=== PATIENT | female | born 1995 | race Caucasian/White ===

== ENCOUNTER 2022-01-16 13:16 | Emergency (ER) | payer BC ==
[~2022-01-16] VITALS: Ht 167.6 cm; Wt 79.0 kg
[2022-01-16 13:17] VITALS: BP 125/75
[2022-01-16] MEDS ORDERED: CELE20TA PO (13:27)
[2022-01-16 14:47] LABS: BASO # 0.1 10^3/uL (0.0-0.2); BASO % 0.4 % (0.0-1.0); EOS # 0.1 10^3/uL (0.0-0.5); EOS % 0.8 % (0.0-3.0); HEMATOCRIT 41.3 % (36.0-47.0); HEMOGLOBIN 13.8 g/dl (12.0-15.5); LYMPH # 2.3 10^3/uL (1.5-5.0); MEAN CORPUSCULAR HGB CONC 33.4 g/dl (32.0-36.5); MEAN CORPUSCULAR VOLUME 89.8 fl (80.0-96.0); MONO % 8.9 % (2.0-8.0); NEUTROPHILS # 7.9 10^3/uL (1.5-8.5); NEUTROPHILS % 69.5 % (36.0-66.0); PLATELET COUNT, AUTOMATED 389 10^3/uL (150-450); WHITE BLOOD COUNT 11.4 10^3/uL (4.0-10.0)
== END 2022-01-16 17:20 | disposition home or self-care (01) ==
LOC: M ED 13:16
DX: O26.91 Pregnancy related conditions, unspecified, first trimester (principal); R10.9 Unspecified abdominal pain; O99.891 Other specified diseases and conditions complicating pregnancy; N93.9 Abnormal uterine and vaginal bleeding, unspecified; Z3A.01 Less than 8 weeks gestation of pregnancy; O99.280 Endocrine, nutritional and metabolic diseases complicating pregnancy, unspecified trimester; E28.2 Polycystic ovarian syndrome; Z98.890 Other specified postprocedural states

== ENCOUNTER → 2022-01-22 | Outpatient (CLI) | payer BC ==
[~2022-01-22] MED LIST: CELE20TA PO
== END ==
LOC: M WHC 09:40
PROVIDERS: ATTEND Physician Assistant
DX: O26.851 Spotting complicating pregnancy, first trimester (principal); Z3A.01 Less than 8 weeks gestation of pregnancy

== ENCOUNTER → 2022-02-05 | Outpatient (CLI) | payer BC ==
[2022-02-05 18:44] LABS: BASO % 0.4 % (0.0-1.0); EOS # 0.1 10^3/uL (0.0-0.5); EOS % 1.4 % (0.0-3.0); HEMATOCRIT 39.3 % (36.0-47.0); HEMOGLOBIN 12.7 g/dl (12.0-15.5); LYMPH # 2.3 10^3/uL (1.5-5.0); LYMPH % 23.6 % (24.0-44.0); MEAN CORPUSCULAR HEMOGLOBIN 29.9 pg (27.0-33.0); MEAN CORPUSCULAR HGB CONC 32.3 g/dl (32.0-36.5); MEAN CORPUSCULAR VOLUME 92.5 fl (80.0-96.0); MONO # 1.1 10^3/uL (0.0-0.8); MONO % 10.9 % (2.0-8.0); NEUTROPHILS # 6.2 10^3/uL (1.5-8.5); NEUTROPHILS % 62.4 % (36.0-66.0); PLATELET COUNT, AUTOMATED 372 10^3/uL (150-450); RED BLOOD COUNT 4.25 10^6/uL (4.00-5.40); WHITE BLOOD COUNT 9.9 10^3/uL (4.0-10.0)
[2022-02-05 20:03] LABS: HEPATITIS C VIRUS ABY INDEX 0.2 INDEX (<0.8); HIV 1&2 SCREEN CENTAUR NEGATIVE (NEGATIVE)
[2022-02-05 20:19] LABS: GC DNA AMPLIFICATION NEGATIVE (NEGATIVE)
== END ==
LOC: M PLALAB 14:05
PROVIDERS: ATTEND Obstetrics & Gynecology
DX: Z34.91 Encounter for supervision of normal pregnancy, unspecified, first trimester (principal); Z36.89 Encounter for other specified antenatal screening

== ENCOUNTER → 2022-02-22 | Outpatient (CLI) | payer BC | LOC: M LAB 11:21 | PROVIDERS: ATTEND Obstetrics & Gynecology | DX: Z34.01 Encounter for supervision of normal first pregnancy, first trimester (principal); Z3A.00 Weeks of gestation of pregnancy not specified ==

== ENCOUNTER → 2022-05-05 | Outpatient (CLI) | payer BC | LOC: M WHC 10:04 | PROVIDERS: ATTEND Specialist | DX: Z34.02 Encounter for supervision of normal first pregnancy, second trimester (principal); Z3A.20 20 weeks gestation of pregnancy ==

== ENCOUNTER → 2022-06-06 | Outpatient (CLI) | payer BC | LOC: M WHC 09:58 | PROVIDERS: ATTEND Obstetrics & Gynecology | DX: Z34.02 Encounter for supervision of normal first pregnancy, second trimester (principal); Z3A.24 24 weeks gestation of pregnancy ==

== ENCOUNTER → 2022-06-18 | Outpatient (CLI) | payer BC ==
[2022-06-18 14:03] LABS: HEMATOCRIT 31.3 % (36.0-47.0); MEAN CORPUSCULAR HEMOGLOBIN 30.7 pg (27.0-33.0); MEAN CORPUSCULAR HGB CONC 31.9 g/dl (32.0-36.5); PLATELET COUNT, AUTOMATED 356 10^3/uL (150-450); RED BLOOD COUNT 3.26 10^6/uL (4.00-5.40); WHITE BLOOD COUNT 10.9 10^3/uL (4.0-10.0)
[2022-06-18 16:11] LABS: GC DNA AMPLIFICATION NEGATIVE (NEGATIVE)
== END ==
LOC: M PLALAB 10:20
PROVIDERS: ATTEND Obstetrics & Gynecology
DX: Z34.02 Encounter for supervision of normal first pregnancy, second trimester (principal)

== ENCOUNTER → 2022-07-10 | Outpatient (CLI) | payer BC | LOC: M WHC 11:02 | PROVIDERS: ATTEND Obstetrics & Gynecology | DX: Z36.2 Encounter for other antenatal screening follow-up (principal); Z3A.29 29 weeks gestation of pregnancy ==

== ENCOUNTER → 2022-08-07 | Outpatient (CLI) | payer BC ==
[2022-08-07 19:12] LABS: HEMATOCRIT 30.5 % (36.0-47.0); HEMOGLOBIN 9.7 g/dl (12.0-15.5); MEAN CORPUSCULAR HGB CONC 31.8 g/dl (32.0-36.5); MEAN CORPUSCULAR VOLUME 94.4 fl (80.0-96.0); PLATELET COUNT, AUTOMATED 373 10^3/uL (150-450); RED BLOOD COUNT 3.23 10^6/uL (4.00-5.40); WHITE BLOOD COUNT 14.8 10^3/uL (4.0-10.0)
[2022-08-07 19:43] LABS: ALBUMIN 2.6 G/DL (3.2-5.2); ALKALINE PHOSPHATASE 94 U/L (46-116); ALT/SGPT 11 U/L (7.0-40); AST/SGOT 16 U/L (<34); BILIRUBIN,DIRECT < 0.1 MG/DL (<0.4); BILIRUBIN,TOTAL 0.3 MG/DL (0.3-1.2); TOTAL PROTEIN 5.5 G/DL (5.7-8.2)
== END ==
LOC: M WUC 15:34
PROVIDERS: ATTEND Advanced Practice Midwife
DX: L29.9 Pruritus, unspecified (principal)

== ENCOUNTER → 2022-08-28 | Outpatient (REF) | payer BC | LOC: M PLALAB 10:34 | PROVIDERS: ATTEND Advanced Practice Midwife | DX: Z34.03 Encounter for supervision of normal first pregnancy, third trimester (principal) ==

== ENCOUNTER → 2022-09-03 | Outpatient (CLI) | payer BC | LOC: M WHC 14:44 | PROVIDERS: ATTEND Advanced Practice Midwife | DX: O40.3XX0 Polyhydramnios, third trimester, not applicable or unspecified (principal); Z3A.37 37 weeks gestation of pregnancy ==

== ENCOUNTER → 2022-09-04 | Outpatient (CLI) | payer BC | LOC: M WHC 11:44 | PROVIDERS: ATTEND Obstetrics & Gynecology | DX: O28.8 Other abnormal findings on antenatal screening of mother (principal); Z3A.37 37 weeks gestation of pregnancy ==

== ENCOUNTER 2022-09-14 10:17 | Inpatient (IN) | payer BC ==
[~2022-09-14] VITALS: Ht 167.6 cm; Wt 98.8 kg
[2022-09-14] VITALS (9 sets, daily range): BP systolic 120–145; BP diastolic 56–80
[2022-09-14] MEDS ORDERED: OXYTOCIN DRIP 30 UNITS in IV 1 EA IV PRN (11:20)
[2022-09-14] MEDS ORDERED: LIDOCAINE 1% MDV 20ML VIAL INFIL PRN (11:20)
[2022-09-14] MEDS ORDERED: IRON1TAB2 PO (11:21)
[2022-09-14] MEDS ORDERED: PRENTAB9 PO (11:21)
[2022-09-14] MEDS ORDERED: HOME MED LIST COMPLETE! XX SCH (11:30)
[2022-09-14 11:33] LABS: HEMATOCRIT 31.6 % (36.0-47.0); HEMOGLOBIN 10.2 g/dl (12.0-15.5); MEAN CORPUSCULAR HGB CONC 32.3 g/dl (32.0-36.5); MEAN CORPUSCULAR VOLUME 92.9 fl (80.0-96.0); PLATELET COUNT, AUTOMATED 357 10^3/uL (150-450); WHITE BLOOD COUNT 13.8 10^3/uL (4.0-10.0)
[2022-09-14] MEDS: miSOPROStol 50MCG 1/2 TABLET SL SCH ×3 (11:42→20:55)
[2022-09-14] MEDS: CitaloPRAM (CeleXA) 20 MG TAB PO SCH (20:55)
[2022-09-15] VITALS (39 sets, daily range): BP systolic 108–157; BP diastolic 53–89
[2022-09-15] MEDS: miSOPROStol 50MCG 1/2 TABLET SL SCH ×2 (01:03→03:30)
[2022-09-15] MEDS ORDERED: TRANEXAMIC ACID INJection 1,000 MG in NS 100 ML IV PRN (09:55)
[2022-09-15] MEDS ORDERED: CARBOPROST TROMETHAMINE 250 MCG/ML AMP IM PRN (09:55)
[2022-09-15] MEDS ORDERED: METHYLERGONOVINE MALEATE 0.2MG/ML 1ML VIAL IM PRN (09:55)
[2022-09-15] MEDS ORDERED: OXYTOCIN INJ 10UNITS/ML 1ML VIAL IM PRN (09:55)
[2022-09-15] MEDS ORDERED: OXYTOCIN DRIP 30 UNITS in IV 1 EA IV SCH (09:55)
[2022-09-15] MEDS: LR 1,000 ML IV SCH ×2 (10:56→19:32)
[2022-09-15] MEDS ORDERED: ePHEDrine SULFATE 25 MG/5 ML(5MG/ML) SYRINGE IVP PRN (18:55)
[2022-09-15] MEDS ORDERED: NALOXONE INJ 0.4MG/1ML VIAL IV PRN (18:55)
[2022-09-15] MEDS ORDERED: EPIDURAL/PCA KEYS XX PRN (18:55)
[2022-09-15] MEDS ORDERED: diphenhydrAMINE 50MG/ML VIAL IV PRN (18:55)
[2022-09-15] MEDS ORDERED: LR 500 ML IV PRN (18:55)
[2022-09-15] MEDS ORDERED: ONDANSETRON 4MG 2ML VIAL IV PRN (18:55)
[2022-09-15] MEDS: FENTANYL/ROPIVACAINE/NACL BAG 100 ML EPIDURAL SCH (19:32)
[2022-09-15] MEDS: CitaloPRAM (CeleXA) 20 MG TAB PO SCH (20:47)
[2022-09-16] VITALS (29 sets, daily range): BP systolic 107–158; BP diastolic 56–84
[2022-09-16] MEDS: LR 1,000 ML IV SCH ×2 (01:43→09:45)
[2022-09-16] MEDS: FENTANYL/ROPIVACAINE/NACL BAG 100 ML EPIDURAL SCH (02:24)
[2022-09-16] MEDS: PRENATAL VITAMINS CHEWABLE TABLET PO SCH (09:00)
[2022-09-16] MEDS ORDERED: ceFAZolin SOD 2 GM in IV 1 EA IV ONE (10:00)
[2022-09-16] MEDS ORDERED: AZITHROMYCIN INJ 500 MG, VIAL MATE ADAPTER 1 EACH in NS 250 ML IV ONE (10:00)
[2022-09-16] MEDS ORDERED: BICITRA 30ML SOLN UDC PO ONE (10:00)
[2022-09-16] MEDS ORDERED: MORPHINE PRES-FREE INJ 10 MG/10 ML VIAL As Ordered ONE (10:25)
[2022-09-16] MEDS ORDERED: KETOROLAC 60MG 2ML VIAL As Ordered ONE (10:25)
[2022-09-16] MEDS ORDERED: OXYTOCIN INJ 10UNITS/ML 1ML VIAL As Ordered ONE ×3 (10:25→11:32)
[2022-09-16] MEDS ORDERED: LIDOCAINE PRES-FREE 2% 10ML AMP As Ordered ONE ×2 (10:25→11:31)
[2022-09-16] MEDS ORDERED: ONDANSETRON 4MG 2ML VIAL As Ordered ONE (10:25)
[2022-09-16] MEDS ORDERED: KETAMINE HCL 200MG/20ML VIAL As Ordered ONE (11:00)
[2022-09-16] MEDS ORDERED: fentaNYL 100 MCG/2 ML INJECTION As Ordered ONE ×2 (11:00→12:23)
[2022-09-16] MEDS ORDERED: MIDAZOLAM INJ 2MG/2ML VIAL As Ordered ONE (11:00)
[2022-09-16 11:28] LABS: CORD GAS ABE A -5.9; CORD GAS HCO3 A 19.7 MEQ/L; CORD GAS O2 SAT A 81.9 %; CORD GAS PCO2 A 39.1 mmHg; CORD GAS PH A 7.32 UNITS; CORD GAS PO2 A 38.5 mmHg; CORD GAS SBC A 19.4 MEQ/L; CORD GAS TCO2 A 20.9 MEQ/L
[2022-09-16 11:30] LABS: CORD GAS ABE V -5.8; CORD GAS HCO3 V 19.8 MEQ/L; CORD GAS O2 SAT V 82.3 %; CORD GAS PCO2 V 39.5 mmHg; CORD GAS PH V 7.318 UNITS; CORD GAS PO2 V 41.2 mmHg; CORD GAS SBC V 19.4 MEQ/L
[2022-09-16] MEDS ORDERED: **NOTE PATIENT COMMENT** MISC XX SCH (12:00)
[2022-09-16] MEDS ORDERED: ONDANSETRON 4MG 2ML VIAL IV PRN ×2 (12:00→12:05)
[2022-09-16] MEDS ORDERED: PROMETHAZINE 25MG/ML 1ML VIAL IV PRN (12:00)
[2022-09-16] MEDS ORDERED: NALOXONE INJ 0.4MG/1ML VIAL IV PRN ×2 (12:00)
[2022-09-16] MEDS ORDERED: diphenhydrAMINE 50MG/ML VIAL IV PRN (12:00)
[2022-09-16] MEDS ORDERED: fentaNYL 100 MCG/2 ML INJECTION IV PRN (12:00)
[2022-09-16] MEDS ORDERED: LR 1,000 ML IV SCH ×2 (12:00→12:05)
[2022-09-16] MEDS ORDERED: oxyCODONE 5MG TAB PO PRN (12:00)
[2022-09-16] MEDS: SLF 3 ML SYR IV SCH ×2 (12:00→20:00)
[2022-09-16] MEDS ORDERED: METOCLOPRAMIDE INJ 10MG/2ML VIAL IV PRN (12:00)
[2022-09-16] MEDS ORDERED: PERCOCET 5MG/325MG TAB PO PRN (12:05)
[2022-09-16] MEDS ORDERED: RHOGAM 300MCG (1500IU) INJ IM SCH (12:05)
[2022-09-16] MEDS ORDERED: OXYTOCIN DRIP 30 UNITS in IV 1 EA IV SCH (12:05)
[2022-09-16] MEDS ORDERED: SIMETHICONE 80MG CHEW TAB PO PRN (12:05)
[2022-09-16] MEDS ORDERED: MOM 30ML SUSPENSION UDC PO PRN (12:05)
[2022-09-16] MEDS ORDERED: oxyCODONE 5MG TAB As Ordered ONE (12:58)
[2022-09-16] MEDS ORDERED: METHYLERGONOVINE MALEATE 0.2MG/ML 1ML VIAL ONE (15:12)
[2022-09-16] MEDS: KETOROLAC 30 MG/ML 1ML VIAL IV SCH ×2 (16:33→22:39)
[2022-09-16] MEDS: DOCUSATE SODIUM 100MG CAPSULE PO SCH (20:07)
[2022-09-16] MEDS: CitaloPRAM (CeleXA) 20 MG TAB PO SCH (20:07)
[2022-09-16] MEDS: PERCOCET 5MG/325MG TAB PO PRN (23:12)
[2022-09-17 02:00] VITALS: BP 111/60
[2022-09-17] MEDS: SLF 3 ML SYR IV SCH (04:30)
[2022-09-17] MEDS: KETOROLAC 30 MG/ML 1ML VIAL IV SCH (04:30)
[2022-09-17 05:33] VITALS: BP 115/63
[2022-09-17 06:45] LABS: HEMATOCRIT 28.8 % (36.0-47.0); HEMOGLOBIN 9.3 g/dl (12.0-15.5); MEAN CORPUSCULAR HEMOGLOBIN 30.6 pg (27.0-33.0); MEAN CORPUSCULAR HGB CONC 32.3 g/dl (32.0-36.5); MEAN CORPUSCULAR VOLUME 94.7 fl (80.0-96.0); PLATELET COUNT, AUTOMATED 261 10^3/uL (150-450); RED BLOOD COUNT 3.04 10^6/uL (4.00-5.40); WHITE BLOOD COUNT 23.3 10^3/uL (4.0-10.0)
[2022-09-17] MEDS: PRENATAL VITAMINS CHEWABLE TABLET PO SCH (08:00)
[2022-09-17] MEDS: DOCUSATE SODIUM 100MG CAPSULE PO SCH ×2 (08:01→20:16)
[2022-09-17 10:00] VITALS: BP 111/60
[2022-09-17] MEDS: PERCOCET 5MG/325MG TAB PO PRN (11:16)
[2022-09-17] MEDS: IBUPROFEN 800 MG TAB PO SCH ×2 (12:59→20:17)
[2022-09-17 14:00] VITALS: BP 115/57
[2022-09-17 18:00] VITALS: BP 103/59
[2022-09-17] MEDS: CitaloPRAM (CeleXA) 20 MG TAB PO SCH (20:16)
[2022-09-17 22:00] VITALS: BP 121/61
[2022-09-18 02:00] VITALS: BP 115/64
[2022-09-18] MEDS: IBUPROFEN 800 MG TAB PO SCH (05:14)
[2022-09-18 06:00] VITALS: BP 126/68
[2022-09-18] MEDS ORDERED: MEASLES,MUMPS,RUBELLA VACCINE INJ (MMR-II) SC.IMMUN ONE (09:00)
[2022-09-18 10:00] VITALS: BP 122/67
[2022-09-18] MEDS ORDERED: IBUP80TA PO (10:17)
[2022-09-18] MEDS ORDERED: OXYC1TAB23 PO (10:17)
== END 2022-09-18 12:12 | disposition home or self-care (01) | DRG 540 ==
LOC: M LDI 10:17 → M OBS 09-16 14:40
PROVIDERS: ADMIT Specialist; ATTEND Specialist
PROC: 3E033VJ Introduction of Other Hormone into Peripheral Vein, Percutaneous Approach (ICD-10-PCS; principal; 2022-09-14)
PROC: 10D00Z1 Extraction of Products of Conception, Low, Open Approach (ICD-10-PCS; 2022-09-16)
DX: O40.3XX0 Polyhydramnios, third trimester, not applicable or unspecified (principal); O62.0 Primary inadequate contractions; Z37.0 Single live birth; Z3A.37 37 weeks gestation of pregnancy

== ENCOUNTER → 2023-10-20 | Outpatient (REF) | payer BC ==
[~2023-10-20] MED LIST changes: +IBUP80TA PO; +IRON1TAB2 PO; +OXYC1TAB23 PO; +PRENTAB9 PO
[2023-10-20 13:32] LABS: HEMATOCRIT 42.6 % (36.0-47.0); HEMOGLOBIN 13.6 g/dl (12.0-15.5); MEAN CORPUSCULAR HEMOGLOBIN 29.6 pg (27.0-33.0); MEAN CORPUSCULAR HGB CONC 31.9 g/dl (32.0-36.5); MEAN CORPUSCULAR VOLUME 92.8 fl (80.0-96.0); PLATELET COUNT, AUTOMATED 374 10^3/uL (150-450); RED BLOOD COUNT 4.59 10^6/uL (4.00-5.40); WHITE BLOOD COUNT 6.7 10^3/uL (4.0-10.0)
[2023-10-20 13:56] LABS: C REACTIVE PROTEIN QUANTITATIV < 0.40 MG/DL (<1.0)
[2023-10-20 13:58] LABS: ALKALINE PHOSPHATASE 69 U/L (46-116); ALT/SGPT < 9 U/L (7.0-40); AST/SGOT 17 U/L (<34); BILIRUBIN,TOTAL 0.6 MG/DL (0.3-1.2); BLOOD UREA NITROGEN 17 MG/DL (9-23); CALCIUM LEVEL 7.1 MG/DL (8.5-10.1); CARBON DIOXIDE LEVEL 28 MMOL/L (20-31); CHLORIDE LEVEL 105 MMOL/L (98-107); CREATININE FOR GFR 0.69 MG/DL (0.55-1.30); GLOMERULAR FILTRATION RATE > 60.0 (>60); GLUCOSE, FASTING 81 MG/DL (60-100); IRON (FE) 109 UG/DL (50-170); PERCENT SATURATION 27.8 % (13.2-45.0); POTASSIUM SERUM 4.6 MMOL/L (3.5-5.1); RHEUMATOID FACTOR QUANT 11.5 IU/ML (<14); SODIUM LEVEL 137 MMOL/L (136-145); TOTAL IRON BINDING CAPACITY 392 UG/DL (250-425); TOTAL PROTEIN 6.8 G/DL (5.7-8.2)
[2023-10-20 13:59] LABS: THYROID STIMULATING HORMONE 0.938 uIU/ML (0.55-4.78); TOTAL 25(OH) VITAMIN D 23.8 NG/ML (20.0-100.0)
== END ==
LOC: M LAB REF 12:54
PROVIDERS: ATTEND Pediatrics
DX: D50.9 Iron deficiency anemia, unspecified (principal); M25.50 Pain in unspecified joint; R53.83 Other fatigue; E55.9 Vitamin D deficiency, unspecified

== ENCOUNTER 2023-10-24 13:20 | Emergency (ER) | payer BC ==
[~2023-10-24] VITALS: Ht 172.7 cm; Wt 86.1 kg
[2023-10-24 13:20] VITALS: TEMP 97.6
[2023-10-24 14:12] LABS: IONIZED CALCIUM 4.8 MG/DL (4.5-5.3)
[2023-10-24 14:33] LABS: CHLORIDE,RANDOM URINE 190 MMOL/L; SODIUM,RANDOM URINE 176 MMOL/L
[2023-10-24 14:35] LABS: BASO % 0.5 % (0.0-1.0); EOS # 0.2 10^3/uL (0.0-0.5); EOS % 2.2 % (0.0-3.0); HEMOGLOBIN 13.5 g/dl (12.0-15.5); LYMPH % 24.5 % (24.0-44.0); MEAN CORPUSCULAR HEMOGLOBIN 30.3 pg (27.0-33.0); MEAN CORPUSCULAR HGB CONC 32.9 g/dl (32.0-36.5); MEAN CORPUSCULAR VOLUME 91.9 fl (80.0-96.0); MONO # 0.6 10^3/uL (0.0-0.8); MONO % 7.8 % (2.0-8.0); NEUTROPHILS # 5.3 10^3/uL (1.5-8.5); NEUTROPHILS % 64.8 % (36.0-66.0); PLATELET COUNT, AUTOMATED 352 10^3/uL (150-450); RED BLOOD COUNT 4.46 10^6/uL (4.00-5.40); WHITE BLOOD COUNT 8.2 10^3/uL (4.0-10.0)
[2023-10-24 14:38] LABS: APPEARANCE, URINE HAZY (CLEAR); BACTERIA, URINE AUTO 1+ (NEGATIVE); BILIRUBIN, URINE AUTO NEGATIVE (NEGATIVE); BLOOD, URINE BLOOD NEGATIVE (NEGATIVE); CALCIUM OXALATE CRYSTALS SMALL; COLOR, URINE YELLOW (YELLOW); GLUCOSE, URINE (UA) AUTO NEGATIVE (NEGATIVE); KETONE, URINE AUTO NEGATIVE (NEGATIVE); LEUKOCYTE ESTERASE, URINE AUTO 3+ (NEGATIVE); NITRITE, URINE AUTO NEGATIVE (NEGATIVE); PROTEIN, URINE AUTO NEGATIVE (NEGATIVE); RBC, URINE AUTO 2 /HPF (0-3); SPECIFIC GRAVITY URINE AUTO 1.021 (1.002-1.035); SQUAMOUS EPITHELIAL CELL UR AU 11 /HPF (0-6); TOTAL PROTEIN,RANDOM URINE 6.1 MG/DL (0.0-14.0); UROBILINOGEN, URINE AUTO 0.2 mg/dL (0.0-2.0); WBC, URINE AUTO 12 /HPF (0-3)
[2023-10-24 14:42] LABS: C REACTIVE PROTEIN QUANTITATIV < 0.40 MG/DL (<1.0); CREATININE, URINE 137.7 MG/DL
[2023-10-24 14:43] LABS: CPK CREATINE PHOSPHOKINASE 111 U/L (34-145); MALB URINE SIEMENS < 3.0 MG/L; MAU/CREAT RATIO 2.1 MCG/MG (0.0-30.0)
[2023-10-24 14:44] LABS: ALBUMIN 3.8 G/DL (3.2-5.2); ALKALINE PHOSPHATASE 74 U/L (46-116); ALT/SGPT 15 U/L (7.0-40); AST/SGOT 17 U/L (<34); BILIRUBIN,TOTAL 0.5 MG/DL (0.3-1.2); BLOOD UREA NITROGEN 14 MG/DL (9-23); CALCIUM LEVEL 9.1 MG/DL (8.5-10.1); CARBON DIOXIDE LEVEL 26 MMOL/L (20-31); CHLORIDE LEVEL 106 MMOL/L (98-107); CREATININE FOR GFR 0.73 MG/DL (0.55-1.30); GLOMERULAR FILTRATION RATE > 60.0 (>60); GLUCOSE, FASTING 92 MG/DL (60-100); MAGNESIUM LEVEL 2.1 MG/DL (1.8-2.4); POTASSIUM SERUM 3.9 MMOL/L (3.5-5.1); PTH INTACT 50.4 PG/ML (18.5-88.0); SODIUM LEVEL 138 MMOL/L (136-145); TOTAL PROTEIN 6.7 G/DL (5.7-8.2)
[2023-10-24] MEDS ORDERED: PROG1CAP9 PO (14:46)
[2023-10-24] MEDS ORDERED: CITA40TA7 PO (14:46)
[2023-10-24] MEDS ORDERED: HOME MED LIST COMPLETE! XX SCH (14:50)
[2023-10-24 15:00] VITALS: BP 111/56
[2023-10-24 15:05] VITALS: O2SAT 98
[2023-10-24 15:10] LABS: HCG, SERUM QUALITATIVE NEGATIVE (NEGATIVE)
== END 2023-10-24 16:04 | disposition home or self-care (01) ==
LOC: M ED 13:20
DX: M79.10 Myalgia, unspecified site (principal); Z79.899 Other long term (current) drug therapy

== ENCOUNTER → 2023-12-14 | Outpatient (REF) | payer BC ==
[~2023-12-14] MED LIST changes: +CITA40TA7 PO; +PROG1CAP9 PO
== END ==
LOC: M LAB REF 16:23
PROVIDERS: ATTEND Pediatrics
DX: E28.2 Polycystic ovarian syndrome (principal)

== ENCOUNTER → 2024-11-07 | Outpatient (REF) | payer BC, OTHER | LOC: M LAB REF 12:26 | PROVIDERS: ATTEND Nurse Practitioner Family | DX: J02.9 Acute pharyngitis, unspecified (principal) ==